=== PATIENT | female | born 2000 | race American Indian/Alaskan Native ===

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

== ENCOUNTER 2019-07-09 22:24 | Emergency (ER) | payer SELFPAY ==
[2019-07-09 22:37] VITALS: BP 143/66
--- NOTE | 2019-07-10 02:24 | Emergency Department Report ---
ED General Adult HPI - General Chief complaint: Sore Throat Stated complaint: THROAT PAIN Time Seen by Provider: 07/10/19 02:08 Source: patient Mode of arrival: Ambulatory Limitations: No Limitations - History of Present Illness Initial comments: 19-year-old -[place] female presents with complaints of sore throat for one week. Pain worsens with swallowing. She states subjective fever and mild cough. He denies trying any [id number] medications. The pain as a 10/10 in severity. -: Sudden Severity scale (0 -10): 10 Quality: constant Associated Symptoms: cough. denies: loss of appetite, malaise Treatments Prior to Arrival: none - Related Data Previous Rx's Medication Instructions Recorded Last Taken Type CLOTRIMAZOLE 1% Vag Cream [Mycelex 1 applicatio VG QHS 7 Days #7 tube 03/24/18 Unknown Rx Vag cream] Vits96/Iron Fum/Folic 1 each PO QDAY #90 tablet 03/24/18 Unknown Rx [ Tablet] Ibuprofen [Motrin 600 MG tab] 600 mg PO Q8H PRN #20 tablet 10/28/18 Unknown Rx Nystas/Diphen/Xyl Visc/Mylanta 30 ml MM Q4H PRN #150 ml 10/28/18 Unknown Rx [Magic Mouthwash] Penicillin V Potassium 500 mg PO BID #20 tablet 10/28/18 Unknown Rx methylPREDNISolone [Medrol] 4 mg PO DAILY #1 tab.ds.pk 10/28/18 Unknown Rx Amoxicillin [Trimox CAP] 500 mg PO BID 10 Days #20 capsule 07/10/19 Unknown Rx Ibuprofen [Motrin 800 MG tab] 800 mg PO Q8HR PRN #21 tablet 07/10/19 Unknown Rx Allergies Allergy/AdvReac Type Severity Reaction Status Date / Time No Known Allergies Allergy Verified 04/26/18 12:31 ED Review of Systems ROS: Stated complaint: THROAT PAIN Other details as noted in HPI Constitutional: fever. denies: chills, diaphoresis, malaise Eyes: denies: vision change ENT: throat pain Respiratory: cough. denies: shortness of breath Cardiovascular: denies: chest pain Gastrointestinal: denies: nausea, vomiting, diarrhea Skin: denies: rash, lesions Neurological: denies: headache ED Past Medical Hx - Past Medical History Previous Medical History?: No Hx Hypertension: No Hx Diabetes: No Hx Deep Vein Thrombosis: No Hx Renal Disease: No Hx Sickle Cell Disease: No Hx Seizures: No Hx Asthma: No Hx HIV: No - Surgical History Past Surgical History?: No - Social History Smoking Status: Never Smoker Substance Use Type: None - Medications Home Medications: Home Medications Medication Instructions Recorded Confirmed Last Taken Type CLOTRIMAZOLE 1% Vag Cream [Mycelex 1 applicatio VG QHS 7 Days #7 tube 03/24/18 Unknown Rx Vag cream] Vits96/Iron Fum/Folic 1 each PO QDAY #90 tablet 03/24/18 Unknown Rx [ Tablet] Ibuprofen [Motrin 600 MG tab] 600 mg PO Q8H PRN #20 tablet 10/28/18 Unknown Rx Nystas/Diphen/Xyl Visc/Mylanta 30 ml MM Q4H PRN #150 ml 10/28/18 Unknown Rx [Magic Mouthwash] Penicillin V Potassium 500 mg PO BID #20 tablet 10/28/18 Unknown Rx methylPREDNISolone [Medrol] 4 mg PO DAILY #1 tab.ds.pk 10/28/18 Unknown Rx Amoxicillin [Trimox CAP] 500 mg PO BID 10 Days #20 capsule 07/10/19 Unknown Rx Ibuprofen [Motrin 800 MG tab] 800 mg PO Q8HR PRN #21 tablet 07/10/19 Unknown Rx ED Physical Exam - General Limitations: No Limitations General appearance: alert, in no apparent distress - Head Head exam: Present: atraumatic, normocephalic - Eye Eye exam: Present: normal appearance - Expanded ENT Exam Expanded Mouth exam: Absent: drooling, trismus, muffled voice Throat exam: Positive: tonsillar erythema, tonsillomegaly, tonsillar exudate - Neck Neck exam: Present: tenderness, full ROM, lymphadenopathy (mild) - Respiratory Respiratory exam: Present: normal lung sounds bilaterally. Absent: respiratory distress - Cardiovascular Cardiovascular Exam: Present: regular rate, normal rhythm. Absent: systolic murmur, diastolic murmur, rubs, gallop - Neurological Exam Neurological exam: Present: alert, oriented X3 - Psychiatric Psychiatric exam: Present: normal affect, normal mood - Skin Skin exam: Present: warm, dry, intact, normal color. Absent: rash ED Course Vital Signs 07/09/19 07/09/19 22:28 22:35 Temperature 98.7 F 98.7 F Pulse Rate 105 H 104 H Respiratory 18 18 Rate Blood Pressure 143/66 143/66 O2 Sat by Pulse 99 98 Oximetry ED Medical Decision Making - Medical Decision Making 19-year-old -[place] female presents with complaints of sore throat for one week. Bilateral tonsillar swelling, erythema and exudates noted. Will treat empirically for strep pharyngitis with amoxicillin. Patient is stable for discharge home and follow-up with primary care provider. Discussed strict return precautions in detail with patient who verbalizes understanding. Critical care attestation.: If time is entered above; I have spent that time in minutes in the direct care of this critically ill patient, excluding procedure time. ED Disposition Clinical Impression: Strep pharyngitis Disposition: DC- TO HOME OR SELFCARE Is pt being admited?: No Condition: Stable Instructions: Strep Throat (ED) Prescriptions: Ibuprofen [Motrin 800 MG tab] 800 mg PO Q8HR PRN #21 tablet PRN Reason: pain Amoxicillin [Trimox CAP] 500 mg PO BID 10 Days #20 capsule Referrals: [facility] [Provider Group] - 3-5 Days
[2019-07-10] MEDS ORDERED: predniSONE 20 MG TAB PO ONE (02:25)
== END 2019-07-10 02:37 | disposition home or self-care (01) ==
LOC: ED 22:24
DX: J02.0 Streptococcal pharyngitis (principal)
CPT/HCPCS: 87116; 87430; 99283; J7512

== ENCOUNTER 2022-03-02 16:23 | Emergency (ER) | payer SELFPAY | END 2022-03-02 19:53 | disposition left against medical advice (07) | LOC: ED 16:23 | DX: R07.89 Other chest pain (principal); R05.9 Cough, unspecified; R50.9 Fever, unspecified; Z53.21 Procedure and treatment not carried out due to patient leaving prior to being seen by health care provider ==